=== PATIENT | male | born 1950 | race Caucasian/White ===

== ENCOUNTER 2023-06-08 14:11 | Day surgery (SDC) | payer OTHER ==
[2023-06-08] VITALS (7 sets, daily range): BP systolic 153–176; BP diastolic 87–93; PULSE 51–58; TEMP 97–97.6
[~2023-06-08] VITALS: Ht 190.5 cm; Wt 103.2 kg
[~2023-06-08 14:11] MED LIST: LR 1,000 ML IV SCH
[2023-06-08] MEDS ORDERED: PROSCAR 5MG5 MG PO (14:48)
[2023-06-08] MEDS ORDERED: PROTONIX 40MG T40 MG PO (14:49)
[2023-06-08] MEDS ORDERED: LIPITOR 40MG TA40 MG PO (14:51)
[2023-06-08] MEDS ORDERED: LIPITOR 80MG80 MG PO (14:52)
[2023-06-08] MEDS ORDERED: TEGRETOL 2200 MG/TA1 PO (14:53)
[2023-06-08] MEDS ORDERED: VITAMIN D31000 IU PO (14:54)
[2023-06-08] MEDS ORDERED: ZOLOFT 100MG100 MG PO (14:55)
[2023-06-08] MEDS ORDERED: [UNRECOGNIZED DRUG - OTHER] TOP (14:57)
--- NOTE | 2023-06-08 15:35 | NUR ---
1432 Pt ambulary to bay 2 with a steady gait, breathing even and unlabored. Pt is alert and oriented, accompanied by his . Consents reviewed and signed by pt. IV established. LR infusing via dial a flow. Call light in reach. warm blanket provided.
[2023-06-08] MEDS ORDERED: dexAMETHasone 10 MG/ML VIAL ONE (15:48)
[2023-06-08] MEDS ORDERED: Ondansetron 4 MG/2 ML VIAL ONE (15:48)
[2023-06-08] MEDS ORDERED: NS 10 ML IV ONE (15:48)
[2023-06-08] MEDS ORDERED: fentaNYL 50 MCG/ML 2 ML VIAL ONE (15:48)
[2023-06-08] MEDS ORDERED: Ondansetron 4 MG/2 ML VIAL IV PRN ×2 (16:15→16:30)
[2023-06-08] MEDS ORDERED: oxyCODONE 5 MG TAB PO PRN (16:15)
[2023-06-08] MEDS ORDERED: Naloxone 0.4 MG/ML VIAL IV PRN (16:15)
[2023-06-08] MEDS ORDERED: Acetaminophen 325 MG TAB PO PRN (16:15)
[2023-06-08] MEDS ORDERED: Hyoscyamine 0.125 MG Sublingual TAB SL PRN (16:15)
[2023-06-08] MEDS ORDERED: hydrALAZINE 20 MG/ML 1 ML VIAL IV PRN (16:30)
[2023-06-08] MEDS ORDERED: HYDROmorphone 2 MG/1 ML VIAL IV PRN (16:30)
[2023-06-08] MEDS ORDERED: fentaNYL 50 MCG/ML 2 ML VIAL IV PRN (16:30)
[2023-06-08] MEDS ORDERED: Furosemide 40 MG/4 ML VIAL ONE (16:47)
[2023-06-08] MEDS ORDERED: Lidocaine 2% (20 MG/ML) 20 ML UROJET UR ONE (16:49)
[2023-06-08] MEDS ORDERED: NORCO 325 MG-51 TAB PO (16:56)
[2023-06-08] MEDS ORDERED: PYRIDIUM 100MG100 MG PO (16:56)
[2023-06-08] MEDS ORDERED: LR 1,000 ML IV ONE (17:13)
[2023-06-08] MEDS ORDERED: Acetaminophen 500 MG TAB PO SCH (17:15)
[2023-06-08] MEDS ORDERED: Home HYDROcodone/Acetaminophen 5/325 MG #4 TABS/PACK PO ONE (18:00)
--- NOTE | 2023-06-08 19:04 | NUR ---
Patient had done well post op, voided x3, blood tinged urine. Tolerated applesauce and ice water without nausea. Pain medications given for pain. Bp slightly elevated due to pain. Patient did report his BP does run high. All discharge education given to patient and his . They are aware to call with questions and concerns. Medication list and medication safety reviewed. Jeol wheeled out with all belongings, his to take him home
== END 2023-06-08 19:05 | disposition home or self-care (01) ==
LOC: SDCO 14:11 → SURG 17:25 → SDCO 19:05 → SURG 19:05
DX: C65.2 Malignant neoplasm of left renal pelvis (principal); Z87.891 Personal history of nicotine dependence
CPT/HCPCS: OP; C1769; C1894; J0690; J1100; J1940; J2405; J2704; J3010; J7120

== ENCOUNTER 2023-06-12 15:45 | Inpatient (IN) | payer OTHER ==
[~2023-06-12] VITALS: Ht 190.5 cm; Wt 102.8 kg
[~2023-06-12 15:45] MED LIST changes: +LIPITOR 40MG TA40 MG PO; +LIPITOR 80MG80 MG PO; -LR 1,000 ML IV SCH; +NORCO 325 MG-51 TAB PO; +PROSCAR 5MG5 MG PO; +PROTONIX 40MG T40 MG PO; +PYRIDIUM 100MG100 MG PO; +TEGRETOL 2200 MG/TA1 PO; +VITAMIN D31000 IU PO; +ZOLOFT 100MG100 MG PO; +[UNRECOGNIZED DRUG - OTHER] TOP
[2023-06-25] MEDS ORDERED: Acetaminophen 500 MG TAB PO SCH (08:30)
[2023-06-25] MEDS ORDERED: Gabapentin 100 MG CAP PO SCH (08:30)
[2023-06-25] MEDS ORDERED: Celecoxib 200 MG CAP PO SCH (08:30)
[2023-06-26] VITALS (12 sets, daily range): BP systolic 111–184; BP diastolic 60–101; PULSE 57–75; TEMP 97.2–98.1
[2023-06-26] MEDS ORDERED: fentaNYL 50 MCG/ML 2 ML VIAL IV PRN (07:45)
[2023-06-26] MEDS ORDERED: Ondansetron 4 MG/2 ML VIAL IV PRN ×2 (07:45→15:30)
[2023-06-26] MEDS ORDERED: HYDROmorphone 2 MG/1 ML VIAL IV PRN (07:45)
[2023-06-26] MEDS ORDERED: LR 1,000 ML IV ONE (10:45)
[2023-06-26] MEDS ORDERED: fentaNYL 50 MCG/ML 5 ML VIAL ONE (11:46)
[2023-06-26] MEDS ORDERED: Midazolam 2 MG/2 ML VIAL ONE (11:46)
[2023-06-26] MEDS ORDERED: Lidocaine PF 2% (20 MG/ML) 5 ML VIAL ONE (12:12)
[2023-06-26] MEDS ORDERED: Rocuronium 50 MG/5 ML Multi-Dose VIAL ONE ×2 (12:12→13:01)
[2023-06-26] MEDS ORDERED: ePHEDrine 50 MG/ML VIAL ONE (12:35)
[2023-06-26] MEDS ORDERED: Indocyanine Green 25 MG KIT INJ ONE (12:40)
[2023-06-26] MEDS ORDERED: COLACE 100100 MG/CAP PO (15:29)
[2023-06-26] MEDS ORDERED: LR 1,000 ML IV SCH (15:30)
[2023-06-26] MEDS ORDERED: Naloxone 0.4 MG/ML VIAL IV PRN (15:30)
[2023-06-26] MEDS ORDERED: Morphine 4 MG/ML VIAL IV PRN (15:30)
[2023-06-26] MEDS ORDERED: oxyCODONE 5 MG TAB PO PRN ×2 (15:30)
[2023-06-26] MEDS ORDERED: Meperidine 50 MG/ML 1 ML VIAL IV PRN (16:00)
[2023-06-26] MEDS ORDERED: Acetaminophen 500 MG TAB PO SCH (16:25)
--- NOTE | 2023-06-26 17:05 | NUR ---
NO INCENTIVE SPIROMETER IN PATIENT'S ROOM.
--- NOTE | 2023-06-26 17:20 | NUR ---
PATIENT ALERT AND ORIENTED X4. VSS. PATIENT UP TO FLOOR AT APPROXIMATELY 1640. POST OP VITALS RUNNING. LR INFUSING INTO LEFT FA AT 75ML/HOUR. CESAR TO DD WITH PABON RED. PATIENT ON 2L NC. PATIENT TOLERATING FLUIDS. REPORTS PAIN 5/10. NO FURTHER NEEDS. CALL LIGHT IN REACH.
[2023-06-26] MEDS ORDERED: Gabapentin 100 MG CAP PO ONE (19:25)
--- NOTE | 2023-06-26 20:00 | NUR ---
Assessment complete. A&Ox4. Denies nausea/shortness of breath. Rating pain 6/10 on pain scale to abdomen-described as throbbing. States oxycodone does not usually work for pain-states norco does. Also states morphine does not help either. Spoke with Dr Kovacs and new orders received and initiated. INT to left FA-LR@75ml/hr infusing without difficulty. SCDs bilat. On RA. Tee cath with reddish urine. Lap sites x6-bright red drainage noted on gown but no active bleeding noted. Gown changed. Patient has tolerated a small amount of clear liquids. Plan of care discussed for this shift to include meds/pain control/IV fluids/calling for questions/concerns. Verbalizes understanding. Call light in reach. Will monitor.
[2023-06-26] MEDS ORDERED: carBAMazepine 200 MG TAB PO SCH (21:00)
--- NOTE | 2023-06-26 22:00 | NUR ---
Patient called stating he was having pain in back from spinal block. This nurse to room-patient assisted to side of bed-stood for approx 10 minutes than vomitted every where-approx 200mls greenish fluid in trash can as well as on floor and in bed. Noted to have blood spots on gown again-midline incision draining bright red blood. Gauze dressing/medipore dressing applied-gown/bedding changed. Patient given PRN zofran and sat up in chair. Egg crate mattress applied for comfort as patient states laying in the bed is intolerable. Assisted back to bed. States he is much more comfortable and is no longer nauseated. SCDs placed. Will monitor.
[2023-06-27 00:49] VITALS: BP_SYST 134
[2023-06-27 03:50] VITALS: BP 106/67; PULSE 66; TEMP 98.3
[2023-06-27 04:03] VITALS: BP_SYST 106
--- NOTE | 2023-06-27 04:06 | NUR ---
Patient c/o pain to back-rating pain 7/10 on pain scale-described as constant ache. Denies abdominal pain-states surgical sites are not bothering him at all-it is back where spinal was done. [place] given per dr order. IV fluids continue to infuse at 75ml/hr to left forearm IV. Patient has had an episode of emesis and nausea and has not tolerated much liquids so far. Output low as well. Tee cath with clear yellow urine/occasional red clot. Denies current needs. Call light in reach. WIll monitor.
--- NOTE | 2023-06-27 06:35 | NUR ---
Report given to JAZMIN Stout
[2023-06-27 07:08] LABS: BASO % 0.5 % (0.0-2.0); EOS % 0.3 % (0.0-4.0); GRAN # 5.6 K/mm3 (1.4-6.5); GRAN % 73.2 % (42.2-75.2); HEMOGLOBIN 11.5 g/dl (13.5-18.0); LYMPH # 1.3 K/mm3 (1.2-3.4); LYMPH % 17.1 % (20.0-51.0); MEAN CELL VOLUME 94 fl (80.0-100.0); MEAN CORPUSCULAR HEMOGLOBIN 32 pg (27-31); MEAN CORPUSCULAR HGB CONC 34 g/dl (33.0-37.0); MEAN PLATELET VOLUME 9.6 fl (7.4-10.4); MONO # 0.7 K/mm3 (0.1-0.6); MONO % 8.6 % (1.7-9.3); PLATELET COUNT 194 K/mm3 (130-400); RED BLOOD COUNT 3.65 M/mm3 (4.20-5.60); REDCELL DISTRIBUTION WIDTH-CV 12.4 % (11.5-14.5)
[2023-06-27 07:09] LABS: CALCIUM 8.1 mg/dL (8.4-10.2); CREATININE, serum 1.12 mg/dL (0.72-1.25); HEMATOCRIT 34.2 % (42.0-52.0); POTASSIUM 3.8 mmol/L (3.5-4.5)
[2023-06-27 07:35] VITALS: BP 97/60; PULSE 61; TEMP 98.4
[2023-06-27 07:40] VITALS: BP_SYST 97
--- NOTE | 2023-06-27 08:45 | NUR ---
PATIENT ALERT AND ORIENTED X4. VSS. PATIENT HERE FOR LEFT ROBOTIC NEPHROURETERECTOMY. LAPS X6, ONE OOZING SCANT DRAINAGE, DRESSING APPLIED. CESAR TO DD WITH RED-TINGED URINE. PATIENT REPORTS MILD BACK PAIN THIS MORNING, DENIES NEED FOR PAIN MEDICATION. IV TO LEFT FA WITH LR RUNNING AT 75ML/HOUR. PATIENT REQUESTS STOOL SOFTENER. PATIENT ON RA. NO FURTHER NEEDS. CALL LIGHT IN REACH.
[2023-06-27] MEDS ORDERED: Sertraline 100 MG TAB PO SCH (09:00)
[2023-06-27] MEDS ORDERED: Magnes Hydrox (MOM) 80 MG/ML 30 ML CUP PO SCH (09:00)
[2023-06-27] MEDS ORDERED: Docusate Sodium 100 MG CAP PO SCH (09:00)
[2023-06-27] MEDS ORDERED: Finasteride 5 MG TAB PO SCH (09:00)
--- NOTE | 2023-06-27 10:25 | NUR ---
DISCHARGE INSTRUCTIONS PROVIDED. PATIENT EDUCATION GIVEN. IV DC'D. EDUCATION PROVIDED ON LEG BAG AND CESAR CARE. PATIENT DENIES ANY PAIN AT THIS TIME. FOLLOW UP APPOINTMENT DISCUSSED. MEDICATIONS REVIEWED. PATIENT DENIES ANY QUESTIONS OR CONCERNS.
--- NOTE | 2023-06-27 10:41 | NUR ---
Patient discharged prior to social work visiting and completing assessment.
--- NOTE | 2023-06-27 10:46 | NUR ---
PATIENT ESCORTED OUT VIA WHEELCHAIR
== END 2023-06-27 10:47 | disposition home or self-care (01) | DRG 658 ==
LOC: SURG 06-26 10:28 → INPTSU 06-26 10:28 → SURG 06-26 12:30
PROVIDERS: ADMIT Urology
PROC: 0TB74ZZ Excision of Left Ureter, Percutaneous Endoscopic Approach (ICD-10-PCS; 2023-06-26)
PROC: 8E0W4CZ Robotic Assisted Procedure of Trunk Region, Percutaneous Endoscopic Approach (ICD-10-PCS; 2023-06-26)
PROC: 0TT14ZZ Resection of Left Kidney, Percutaneous Endoscopic Approach (ICD-10-PCS; principal; 2023-06-26 12:30)
DX: C64.2 Malignant neoplasm of left kidney, except renal pelvis (principal); J44.9 Chronic obstructive pulmonary disease, unspecified; E78.5 Hyperlipidemia, unspecified; K21.9 Gastro-esophageal reflux disease without esophagitis; F32.A Depression, unspecified; Z79.899 Other long term (current) drug therapy; Z88.7 Allergy status to serum and vaccine; Z23 Encounter for immunization
CPT/HCPCS: A4314; A9284; J0690; J1170; J1650; J2250; J2405; J2704; J3010; J7120